=== PATIENT | female | born 1950 | race Caucasian/White ===

== ENCOUNTER 2017-01-16 14:34 | Inpatient (IN) | payer MEDICARE, OTHER ==
--- NOTE | ~2017-01-16 | CN ---
Consultation Report [facility] [address] [place]. [address] NAME: LULU SZYMANSKI : 48 STATUS : ADM IN [facility]#: [id number] AGE: 66 ADM/REG DATE : 01/16/17 MR#: [id number] REPORT SERV DATE: 01/17/17 DICTATED BY: STANLEY MCCARTY DATE: 01/16/17 REPORT STATUS : Draft TRANSCRIBED BY: MODSalvador DATE: 01/16/17 CONSULTATION DATE OF CONSULTATION: 01/16/2017 REASON: Abnormal cardiac enzymes. HISTORY OF PRESENT ILLNESS: Ms. Szymanski is a 66-year-old woman admitted with signs and symptoms of urosepsis. She has a known history of stage IV renal insufficiency and has been followed by Dr. Toro. In this setting, cardiac enzymes were drawn and troponin value was 0.18. The patient denied any chest pain or chest discomfort. The patient does have a known history of coronary artery disease, status post CAB by Dr. Massimo Abbott in 2009. She did see a cardiac surgeon at the diagnostic center at that time, but cannot remember the name and since then, has not had followup with Cardiology. She denies having any repeat angiograms or stent placement since that time. PAST MEDICAL HISTORY: COPD, obstructive sleep apnea, morbid obesity, diabetes, hypertension, stage IV kidney disease with proteinuria, history of CAB in 2009, reportedly normal LV systolic function. HOME MEDICATIONS: Include albuterol, aspirin, carvedilol, Plavix, Aricept, Neurontin, insulin, levothyroxine, Pravachol, Januvia, spironolactone, and Demadex. FAMILY HISTORY: Noncontributory. Negative premature coronary artery disease. SOCIAL HISTORY: Negative tobacco or alcohol. REVIEW OF SYSTEMS: As noted above. All other systems reviewed and negative. PHYSICAL EXAMINATION: VITAL SIGNS: Blood pressure of 107/54, pulse 100, in atrial fibrillation, respirations 18, O2 sat 92%. GENERAL: Well developed, well nourished. HEENT: No icterus. Good dentition. NECK: Supple. No masses or thyromegaly LUNGS: Breathing comfortably. No rales or wheezes. COR: Normal S1, S2. No S3 or S4. No murmurs, clicks, rubs. No JVD. She has an irregularly irregular rhythm. ABD: Soft, nondistended, nontender, no hepatosplenomegaly. EXT: No clubbing, cyanosis or edema. Peripheral pulses 2+/=bilaterally. SKIN: Warm and dry. No visible lesions. MS: Chest wall without deformity, no obvious clavicular fractures. Consultation Report [facility] [id number] [place]. [address] NAME: LULU SZYMANSKI : [birth year] STATUS : ADM IN [facility]#: [id number] AGE: 66 ADM/REG DATE : 01/16/17 MR#: [id number] REPORT SERV DATE: 01/17/17 DICTATED BY: STANLEY MCCARTY DATE: 01/16/17 REPORT STATUS : Draft TRANSCRIBED BY: JOSE ALFREDO DATE: 01/16/17 NEURO/PSYCH: Oriented X3. No anxiety or depression. IMAGING PROCEDURE: EKG shows atrial fibrillation, late transition of the QRS. QRS duration and QT interval are within normal limits. No evidence for ischemia or infarction. IMPRESSION AND PLAN: The patient admitted with what appears to be urosepsis with profoundly elevated white blood cell count, stage IV renal insufficiency which is chronic, hyperglycemic. In this setting, her troponin was 0.18. EKG does not reflect acute ischemia or infarction. She is denying any chest pain or chest discomfort. She does have a known history of coronary artery disease and status post CAB, but appears to have been stable from cardiovascular standpoint since that time. I would recommend repeating troponin values. In the setting of her urosepsis and renal insufficiency, the current low elevation is unlikely to be related to myocardial ischemia or infarction. She does have atrial fibrillation. It is not clear whether this is an old or new finding. I do not have any old EKGs. She does not seem to be symptomatic with the atrial fibrillation. I would recommend giving her intravenous heparin for CVA prophylaxis. Consider long-term anticoagulation, possibly with Coumadin given her stage IV kidney disease. I would probably employ a rate control strategy for her. Long-standing history of coronary artery disease. Continue current cardiac medications including Pravachol. Check echocardiogram. RAMAKRISHNA/JOSE ALFREDO Stanley Mccarty M.D. / [id number] CC: Filemon Dagn M.D.
--- NOTE | ~2017-01-16 | CN ---
Consultation Report [facility] [address] [place]. [address] NAME: LULU SZYMANSKI : 48 STATUS : ADM IN PAT#: [id number] AGE: 66 ADM/REG DATE : 01/16/17 MR#: [id number] REPORT SERV DATE: 01/16/17 DICTATED BY: SORIN MELARA DATE: 01/16/17 REPORT STATUS : Draft TRANSCRIBED BY: MODL DATE: 01/16/17 NEPHROLOGY CONSULT DATE OF CONSULTATION: 01/16/2017 REASON FOR CONSULT: Chronic kidney disease with acute kidney injury. HISTORY OF PRESENT ILLNESS: Ms. Szymanski is a pleasant 66-year-old white female who has advanced chronic kidney disease, stage IV, followed in the office of [facility] by Dr. Toro. She has had a left upper arm AV fistula in place for several years but has never been on dialysis. She was most recently seen in the office on 01/08/2017, at which time, her creatinine was 2.3 and urine protein-creatinine ratio was 0.218. Her baseline creatinine for several years has been 1.8 to 2.3. She came into the emergency room earlier today with a urinary tract infection. Chest x-ray showed no active infiltrates and CT without contrast showed no intraabdominal pathology. White count 24,700. BUN 81, creatinine 4.5, potassium 4.2. Urinalysis was consistent with urinary tract infection. She has been started on IV fluids and antibiotics. PAST MEDICAL HISTORY: 1. CKD stage 4, baseline creatinine of 1.8 to 2.3 since 06/2010, left upper arm AV fistula in place but never on dialysis. 2. Microalbuminuria 218 mg earlier this month. 3. IDDM with neuropathy. 4. Coronary artery disease with CABG in 2009, EF 45%, previous mitral valve repair. Recent abnormal stress test with mild anterior, anteroseptal and apical ischemia without plans for catheterization at this time because of chronic kidney disease. 5. History of severe diastolic dysfunction. 6. Sleep apnea. 7. Pulmonary hypertension. 8. Obesity. 9. Hyperlipidemia. 10.Hypothyroidism. 11.Peripheral vascular disease with a history of lower extremity stents. MEDICATIONS: On presentation, albuterol inhaler, Xanax, aspirin, Coreg 6.25 mg b.i.d., Celexa 40 mg daily, Plavix 75 mg daily, Aricept 10 mg h.s., iron supplement twice a day, Neurontin, Toujeo 70 units b.i.d., Imdur 120 mg daily, Synthroid 75 mcg daily, fish oil 1000 mg daily, Protonix, Pravachol 40 mg h.s., Januvia 100 mg daily, Aldactone 25 mg daily, Demadex 100 mg daily, and tiotropium inhaler two puffs a day. FAMILY HISTORY: Noncontributory to current admission. REVIEW OF SYSTEMS: Significant for poor appetite for the last several days. Easy bruising and urinary tract Consultation Report [facility] [address] [place]. [address] NAME: LULU SZYMANSKI : 48 STATUS : ADM IN [facility]#: [id number] AGE: 66 ADM/REG DATE : 01/16/17 MR#: [id number] REPORT SERV DATE: 01/16/17 DICTATED BY: SORIN MELARA DATE: 01/16/17 REPORT STATUS : Draft TRANSCRIBED BY: JOSE ALFREDO DATE: 01/16/17 infection symptoms. SOCIAL HISTORY: Not obtained at this time as the patient is being transported to the bathroom by ER staff. PHYSICAL EXAMINATION: VITAL SIGNS: Temperature 98.2, pulse 103, respirations 14, blood pressure 107/53, and 92% sat on room air. GENERAL: She is a chronically ill-appearing, elderly, white female, who is awake, alert, oriented, and cooperative with the exam. She appears to be in no distress at this time. Sclerae without icterus. Conjunctivae not injected. Oropharynx is clear. Mucous membranes are dry. No JVD. LUNGS: She has bilateral rhonchi without dyspnea. HEART: Rate is tachycardic rhythm, is a regular 2/6 murmur. ABDOMEN: Obese, soft, nontender, nondistended. Bowel sounds present throughout without rebound or guarding. EXTREMITIES: Show trace edema. SKIN: Shows diffuse bruising without rash. NEURO: Grossly nonfocal. : Deferred. There is no Arguello catheter in place. Mood and affect are appropriate. Left upper arm AV fistula has palpable thrill, audible bruit that appears immature. LABS: Sodium 129, potassium 4.2, bicarb 25, BUN 81, creatinine 4.5, glucose 346, calcium 9.3, magnesium 2.1. Albumin 2.8. Troponin 0.18. White count 24,700, hemoglobin 12.2, and platelets 130,000. INR 1.3. ASSESSMENT AND PLAN: Ms. Szymanski has stage 4 chronic kidney disease with baseline creatinine of 1.8 to 2.3, now presents with acute kidney injury, azotemia, hyponatremia, leukocytosis, urinary tract infection, coronary disease with previous bypass surgery, recent positive stress test, hypotension, hypoalbuminemia, and paroxysmal atrial fibrillation. I suspect she does have a component of intravascular volume depletion related to her recent poor oral intake and use of diuretics. She has severe diastolic dysfunction and likely has cardiorenal syndrome, but at this point, may be somewhat dehydrated. Hold torsemide and Aldactone. Hydrate with a close watch of her volume status with her previous cardiac history. Defer antibiotics to the primary service. Protect left arm. Watch labs. Provide supportive care. She is very high risk for developing worsening renal function and/or dialysis dependence with cardiac catheterization. Group will follow closely with you and will work in concert with the Cardiology Service to decide optimal time for cardiac cath if needed during this admission. MADELAINE/SHANIQUAL Consultation Report [facility] [address] [place]. [address] NAME: LULU SZYMANSKI : 48 STATUS : ADM IN [facility]#: [id number] AGE: 66 ADM/REG DATE : 01/16/17 MR#: [id number] REPORT SERV DATE: 01/16/17 DICTATED BY: SORIN MELARA DATE: 01/16/17 REPORT STATUS : Draft TRANSCRIBED BY: MODSalvador DATE: 01/16/17 Sorin Melara M.D. / [id number] CC: Filemon Dang M.D. Mandeep Grewal, M.D.
--- NOTE | ~2017-01-16 | IDS ---
Interim Discharge Summary [facility] [address] [place]. [address] NAME: LULU CISSE : 48 STATUS : ADM IN [facility]#: [id number] AGE: 66 ADM/REG DATE : 01/16/17 MR#: [id number] REPORT SERV DATE: 01/21/17 DICTATED BY: MARIUSZ EVANS DATE: 01/21/17 REPORT STATUS : Draft TRANSCRIBED BY: MODL DATE: 01/21/17 ADMISSION DATE: 01/16/2017 DISCHARGE DATE: CONSULTANTS: Dr. Jeffry Frye and Dr. Ga Caro of Nephrology; Dr. Catalino Koenig, Cardiology. PROBLEM LIST: 1. Escherichia coli sepsis bacteremia due to urinary tract infection. 2. Acute kidney injury superimposed on stage 4 chronic kidney disease. 3. Exacerbation of peripheral neuropathy in feet. 4. Diabetes mellitus type 2 with A1c 7.6%. 5. New atrial fibrillation. 6. Pulmonary hypertension. 7. Coronary artery disease with previous bypass and mitral valve repair in 2009, current ejection fraction of 45% to 50%. 8. Obesity with body mass index of 40.8. 9. Hypertension, not well controlled. 10.Obstructive sleep apnea, on bedtime CPAP. 11.Thrombocytopenia, mild and transient, now improved. HISTORY: This patient went to the ER 01/16/2017 with dysuria, severe weakness, reduced urine production. Her creatinine was significantly above her baseline at 4.51. Her baseline is closer to 2. Her white count was elevated at 24.7. Her urinalysis was very abnormal with greater than 182 white cells, greater than 182 red blood cells, occasional white cell clumps. There were 31 squamous epithelium. There were a few bacteria. There is a large amount of leukocyte esterase. Chest x-ray in the emergency room showed moderate cardiomegaly that was stable and clear lung sutton. CT scan of abdomen and pelvis revealed no significant abnormalities. The patient was suspected to have sepsis. The ER gave her Rocephin and some IV fluids and she was referred to our team for inpatient care. Our admitting partner gave her some IV fluids and started her on Zosyn intravenously. Blood culture and urine culture grew out E. coli (one of two blood cultures). We switched this over to Azactam until the sensitivities came back and switched it then to Ancef. The procalcitonin was 23.44 on admission. Her white count has now normalized. The patient was seen by Nephrology with Dr. Frye and Dr. Caro and she was given some IV fluids. Currently, her renal function has improved back to a creatinine of 1.97 which is really at her baseline. The patient here was noted to have new atrial fibrillation. She was seen by Dr. Catalino Koenig of Cardiology. She had abnormal troponins up to 0.19 and it came back down. Dr. Koenig felt this was probably demand ischemia. He did order a new echocardiogram done on 01/17/2017; left atrial size 5.5 cm, left ventricular ejection fraction of 45% to 50%. Interim Discharge Summary [address] [address] NAME: LULU CISSE : 48 STATUS : ADM IN PAT#: [id number] AGE: 66 ADM/REG DATE : 01/16/17 MR#: [id number] REPORT SERV DATE: 01/21/17 DICTATED BY: MARIUSZ EVANS DATE: 01/21/17 REPORT STATUS : Draft TRANSCRIBED BY: JOSE ALFREDO DATE: 01/21/17 Moderate pulmonary hypertension with a PA pressure of 49. Stable mitral valve repair. Mild tricuspid regurgitation. Small posterior loculated pericardial effusion. Dr. Koenig recommended rate control and anticoagulation. She has rate control achieved on Coreg at this time and she has been on a heparin drip and converted into Coumadin because of her renal dysfunction. Her INR is currently up to 1.7, but she is still on heparin drip. The patient was evaluated by Physical Therapy, and they felt she would be able to go home with family and continue her baseline, but her peripheral neuropathy in her feet has gotten much worse so that she cannot stand or bear weight on it. So, we are asking Physical Therapy to reassess, and we are increasing her gabapentin dose to see if it will help with this neuropathy flare up. She has chronic obstructive sleep apnea. Her CPAP machine the mask, it does not stay attached to the tubing. Case Management reportedly has talked to her the medical supplier and they are going to provide her with a new tubing mask, so that it will work, but in the meantime, she is using the hospital CPAP unit. She did have thrombocytopenia during her sepsis bacteremia, but it has resolved now. The patient's blood pressure has been higher, so we are going to add some Norvasc to try to help with blood pressure control. Rehab versus home will depend on her foot neuropathy. We will allow her to ambulate at her baseline. When she is well enough to be out of the hospital, she should be able to switch to oral antibiotics. SUSANNAH/JOSE ALFREDO Mariusz Evans M.D. / [id number] CC: Filemon Dang M.D.
--- NOTE | ~2017-01-16 | DS ---
Discharge Summary [facility] [address] [place]. [address] NAME: LULU CISSE : 48 STATUS : DIS IN PAT#: [id number] AGE: 66 ADM/REG DATE : 01/16/17 MR#: [id number] REPORT SERV DATE: 01/27/17 DICTATED BY: ASHUTOSH JOYA DATE: 01/26/17 REPORT STATUS : Draft TRANSCRIBED BY: MODL DATE: 01/26/17 ADMISSION DATE: 01/16/2017 DISCHARGE DATE: 01/26/2017 REASON FOR ADMISSION: This is a 66-year-old female who was admitted with weakness, mild confusion, and increased urinary frequency for about 2 to 3 days prior to admission. In the emergency room, she was found to have UTI and she was admitted. DISCHARGE DIAGNOSES: 1. Urinary tract infection, positive for Escherichia coli with Escherichia coli bacteremia. 2. Acute kidney injury, on chronic kidney disease 4. 3. Diabetes type 2. 4. Atrial fibrillation. 5. Hypertension. 6. Neuropathy. 7. Coronary artery disease. 8. Obstructive sleep apnea, on CPAP at night. HOSPITAL COURSE: Please see admission H and P from Nimisha Oliveros on 01/16/2017 and interim discharge summary from Pritesh Evans on 01/21/2017 for full details on admission and hospital stay. I picked up the patient on 01/24/2017. 1. The patient had been admitted for UTI. Urine culture would grow out E. coli and blood cultures would also grow out E. coli. The E. coli was sensitive to fluoroquinolones. Initially, she was placed on IV Zosyn, then changed to IV Azactam, then changed to IV Ancef, and she will complete her 14 days of antibiotic coverage with oral Cipro. She has received 7 days of antibiotics to this point. She needs 7 more days to complete. 2. Acute kidney injury, on CKD 4. The patient's creatinine during hospital stay on admission was 4.38 on admission with IV fluid hydration, it trended down to 2.16 on 01/24/2017. 3. Atrial fibrillation. The patient on Coumadin at home. INR at discharge is 2.7. DISCHARGE CONDITION: Stable. DISCHARGE MEDICATIONS: 1. Cipro 500 mg p.o. b.i.d. x7 more days. 2. Torsemide 100 mg p.o. daily. 3. Protonix 40 mg p.o. daily. 4. Synthroid 75 mcg p.o. daily. 5. Coreg 6.25 mg p.o. b.i.d. 6. Neurontin 900 mg p.o. at bedtime. 7. Ferrous sulfate 325 mg p.o. b.i.d. 8. Stiolto Respimat 2.5 mcg inhaled daily. 9. Albuterol q.4 hours p.r.n. 10.Norvasc 5 mg p.o. daily. 11.Aspirin 81 mg p.o. daily. Discharge Summary [facility] [id number] [place]. [address] NAME: LULU CISSE : 48 STATUS : DIS IN PAT#: [id number] AGE: 66 ADM/REG DATE : 01/16/17 MR#: [id number] REPORT SERV DATE: 01/27/17 DICTATED BY: ASHUTOSH JOYA DATE: 01/26/17 REPORT STATUS : Draft TRANSCRIBED BY: JOSE ALFREDO DATE: 01/26/17 12.Folic acid 1 mg p.o. daily. 13.Neurontin 600 mg p.o. daily. 14.NovoLog sliding scale. 15.Imdur 120 mg p.o. daily. 16.Multivitamin one tablet p.o. daily. 17.DuoNeb q.4 hours p.r.n. 18.Levemir 30 units at bedtime. 19.NovoLog 5 units a.c. t.i.d. 20.Warfarin 4 mg p.o. daily. DISCHARGE PLAN: The patient had some issues with her neuropathy and bilateral foot pain, but that had resolved by the end of hospital stay; however, she was still too weak to get out of the bed and PT recommended rehab. She has been arranged for [facility] and is discharging there today. The patient to follow up with her primary care at conclusion of rehab. DICTATED BY: EMIR Arias/JOSE ALFREDO Ashutosh Joya APN / [id number] CC: Sven Cox M.D. Filemon Negro M.D. Nathan Chamberlain, M.D.
--- NOTE | ~2017-01-16 | HP ---
History And Physical [facility] [address] [place]. [address] NAME: LULU CISSE : 48 STATUS : ADM IN [facility]#: [id number] AGE: 66 ADM/REG DATE : 01/16/17 MR#: [id number] REPORT SERV DATE: 01/16/17 DICTATED BY: NIMISHA NUNEZ DATE: 01/16/17 REPORT STATUS : Draft TRANSCRIBED BY: MODL DATE: 01/16/17 DATE OF ADMISSION: 01/16/2017 CHIEF COMPLAINT: Weakness, mild confusion, increased urinary frequency and urgency for about two to three days. HISTORY OF PRESENT ILLNESS: This is a very pleasant 66 years old female. She has a history of chronic kidney disease stage 3 to 4, her baseline creatinine is around 1.8 to 2.3, she is followed by Dr. Toro, she has a history of left upper extremity AV fistula complicated by steal syndrome covered by two grafts by Dr. Lopez, she is not currently on dialysis; coronary artery disease, status post CABG in 2010; history of diabetes type 2, insulin dependent; hypertension; hyperlipidemia; obesity; obstructive sleep apnea; peripheral neuropathy; and mild cognitive impairment. She is a patient of Dr. Funk, her primary care provider. Dr. Mandel is her associate faculty. Presenting today to [facility] with complaints of not feeling well. It is very important to note that the patient has been having prior urinary tract infection for a couple of days. She is complaining of increased urinary frequency and urgency, significant decrease of urine output, as well as weakness, a little bit more confused than usual, and her sugar that has been uncontrolled. She did not have any chest pain. She does have some shortness of breath, but she has also a history of COPD. She is on oxygen at night. She felt very sick overall, but she did not have any nausea or vomiting. No diarrhea or constipation. She had decrease in her p.o. intake and her drinking with the above symptoms. She has been presenting to [facility] emergency room. She has been evaluated and after speaking with Dr. Caro from Nephrology Service, the patient has been admitted to Hospitalist Service for further evaluation and treatment. PAST MEDICAL HISTORY: Significant for coronary artery disease with prior CABG; chronic kidney disease stage 4; history of left upper extremity fistula; peripheral vascular disease; COPD; obstructive sleep apnea; hyperlipidemia; hypertension; hypothyroidism; diabetes type 2, insulin dependent. PAST SURGICAL HISTORY: Includes CABG in 2011, cholecystectomy, lysis of adhesions after small bowel obstruction which required surgery, fistula to the left upper extremity, and hysterectomy. SOCIAL HISTORY: The patient is a . She quit smoking more than 20 years ago. No alcohol. No IV drugs. She lives alone. ALLERGIES: SHE IS ALLERGIC TO CODEINE, DILAUDID, AND ATIVAN. MEDICATIONS AT HOME: Include iron sulfate, Neurontin, insulin glargine, Imdur, Synthroid, omega-3 fatty acids, Protonix, Pravachol, Januvia, spironolactone, tiotropium bromide and olodaterol infusion, and Demadex. REVIEW OF SYSTEMS: A 14-point review of systems has been obtained and pertinent positive has been listed into History And Physical [address] [address] NAME: LULU CISSE : 48 STATUS : ADM IN [facility]#: [id number] AGE: 66 ADM/REG DATE : 01/16/17 MR#: [id number] REPORT SERV DATE: 01/16/17 DICTATED BY: NIMISHA NUNEZ DATE: 01/16/17 REPORT STATUS : Draft TRANSCRIBED BY: JOSE ALFREDO DATE: 01/16/17 the history of present illness, otherwise negative except those underlying above. OBJECTIVE: VITAL SIGNS: The patient currently is afebrile, blood pressure 107/53, heart rate 103, respiratory rate 14, saturating 92% on arrival on room air. GENERAL: She is a very pleased, well-developed, well-nourished female, in no acute distress. She is alert and oriented x3. She is nonfocal. She follows her commands appropriately. HEENT: Shows pupils equal, round, and reactive to light. Extraocular movements intact. NECK: No JVD. No lymphadenopathy. No thyromegaly appreciated. CHEST: Eval shows bilateral air entry. Clear anteroposterior. Decreased breath sounds bibasilarly. No wheezes, crackles, or rhonchi appreciated. CARDIOVASCULAR: Irregularly irregular. S1, S2 positive. No S3, no S4. No murmurs, rubs, or gallops appreciated. ABDOMEN: Soft with positive bowel sounds. Nontender. No guarding. No rebound. EXTREMITIES: No clubbing, cyanosis, or edema. NEUROLOGIC: She is generalized weak, but she is alert and oriented x3. Mildly anxious mood. Follows commands appropriately. LABORATORY DATA: Labs from today include sodium 129, potassium 4.2, chloride 94, CO2 of 25, BUN 81, creatinine is 451, glucose is 346. Her troponin I is 0.18, her lactate is 2.1, white count 24.7, hemoglobin 12.2, hematocrit 35.6, platelets 130. INR is 1.3. Her UA has been positive for large leukocyte esterase, white cells, and few bacteria. Her blood cultures currently are pending and her urine cultures are pending as well. There is EKG, which shows atrial fibrillation with heart rate [address] elevation. Chest x-ray, portable, performed in the emergency room has shown cardiomegaly. No acute cardiopulmonary abnormalities. Lungs are clear. The CT of the abdomen and pelvis without contrast showed no acute intraabdominal or pelvic pathology that could be identified. ASSESSMENT: This is a very pleasant 66 years old female with: 1. Urinary tract infection and sepsis. 2. Bbjvu-jr-nmslmbl progressive kidney disease stage 4, followed by Dr. Toro. 3. History of left upper extremity IV fistula. 4. Hypertension. 5. Diabetes type 2, uncontrolled, insulin dependent. 6. Hyperlipidemia. 7. Obstructive sleep apnea. 8. Coronary artery disease with prior CABG. 9. New-onset atrial fibrillation. 10.Positive troponin I. 11.Hyperlipidemia. 12.Mild cognitive impairment. PLAN: The patient is going to be admitted to Hospitalist Service. 1. UTI with sepsis. We will check urine culture and blood culture. I am going to place her on Zosyn. We are going to place a Arguello catheter. We are going to give her fluids. We will hold her Aldactone and torsemide for today and just hydrate her. Strict I's and O's, strict daily weights, and consult Nephrology for further recommendation. History And Physical [address] [place]. [address] NAME: LULU CISSE : 48 STATUS : ADM IN [facility]#: [id number] AGE: 66 ADM/REG DATE : 01/16/17 MR#: [id number] REPORT SERV DATE: 06/13/17 DICTATED BY: NIMISHA NUNEZ DATE: 01/16/17 REPORT STATUS : Draft TRANSCRIBED BY: JOSE ALFREDO DATE: 01/16/17 2. Atrial fibrillation, new onset. We are going to actually place her on heparin drip. Continue beta-nallely. Cardizem p.r.n. We are going to continue her beta-nallely, aspirin, and Plavix. Rule her out for [place] by serial cardiac enzymes, serial EKG, and consult Dr. Mandel. 3. Diabetes. We will check hemoglobin A1c. We are going to place her on Lantus twice a day. We are going to hold her Januvia and place her on sliding scale. 4. Obstructive sleep apnea. Place her on oxygen, on CPAP. 5. Hypertension. We will continue her home medications. 6. We are going to provide reasonable pain and nausea control. GI and DVT prophylaxis. Further workup and recommendation pending above. CF/JOSE ALFREDO Nimisha Nunez M.D. / [id number] CC: Filemon Dang M.D.
[2017-01-16 13:47] LABS: ASCORBIC ACID (UR NOT ORDER) NEG (NEG); BILIRUBIN, URINE NEGATIVE (NEG); ER URINALYSIS TAT 0 Hrs 21 Mins; KETONE, URINE NEGATIVE (NEG); LEUKOCYTE ESTERASE(NOT OR LARGE (NEG); NITRITE (URINE) NEG (NEG)
[2017-01-16 13:48] LABS: WBC (NOT ORDERED) (RFLEX) > 182 (0-5)
[2017-01-16 14:28] LABS: BASOPHILS 0.1 %; BASOPHILS ABSOLUTE 0.02 10/3/uL (0.0-0.16); EOSINOPHILS 0.1 %; EOSINOPHILS ABSOLUTE 0.02 10/3/uL (0.0-0.53); ER CBC TAT 0 Hrs 08 Mins; HEMATOCRIT 35.6 % (36.0-48.0); HEMOGLOBIN 12.2 g/dL (12.0-16.0); IMMATURE GRANULOCYTES 0.7 %; IMMATURE GRANULOCYTES ABSOLUTE 0.17 10/3/uL (0.0-0.11); LYMPHOCYTES 5.1 %; LYMPHOCYTES ABSOLUTE 1.26 10/3/uL (0.67-4.30); MANUAL DIFF NO %; MEAN CORPUS HGB CONC 34.3 g/dL (32.0-36.0); MEAN CORPUSCULAR VOLUME 87.7 fL (80-100); MEAN PLATELET VOLUME 9.4 fL (9.2-13.0); MONOCYTES 4.6 %; MONOCYTES ABSOLUTE 1.14 10/3/uL (0.21-1.20); NEUTROPHILS 89.4 %; PLATELET COUNT 130 10/3/uL (150-400); RBC DISTRIBUTION WIDTH 14.6 % (12.0-16.0); RED CELL COUNT 4.06 10/6/uL (4.0-5.6); WHITE BLOOD CELLS 24.7 10/3/uL (4.5-10.5)
[2017-01-16 14:34] LABS: INTERNATIONAL NORMAL RATI 1.3 UNITS (-); PROTIME (NOT ORD) 15.6 SEC (12.0-14.5)
[~2017-01-16 14:34] MED LIST: ACTOS45 PO; ALBUTEROL; AMARYL1 MG PO; AMB10 PO; APRES10B PO; ARICEPT5 PO; ASA5GR PO; ASAB PO; ASABAYER PO; ATROVENTUD INH; ATV.5 PO; BUFFERIN PO; BYSTOLIC5 MG PO; CALTRA600D PO; CELEXA10 PO; CELEXA20 PO; CINNAMONPO PO; COREG6 PO; DEMA100 PO; DEMA20 PO; DUONEB INH; EFFIENT10 PO; FERROUS SULFATE PO; HCTZ25B PO; HEMOCYTET PO; IMDUR30 PO; INSULIN; IRON 325 MG PO; IRON325 MG PO; ISOSORB DIN30 MG PO; JANUVIA100 MG PO; JANUVIA50 PO; K-TABS10 MEQ PO; KAPIDEX60 MG PO; KLOR-CON 1010 MEQ PO; L20 PO; L40 PO; LANTUS SC; LEVAQUIN750 MG PO; LEVEMIR SC; LOP25 PO; MELATONIN5 M1 PO; MIRALAXPKT PO; NEUR300 PO; NEUR600 PO; NOVOLOG SC; NTGOINTUD TOP; PLAVIX PO; PR25 PO; PRAVACHOL40 MG PO; PRAVACHOL80 MG PO; PROTONIX PO; SEROQUEL25 PO; SPIRO25 PO; STEROID IJ; SYMBICORT 160/41 INH INH; SYN.025B PO; SYN.05 PO; SYN075 PO; TOUJEO SC; ULTRAM50 M1 PO; VITAMIN D PO; VITAMIN D1000 UNI1 PO; XANAX1 MG PO; ZESTRIL10 MG PO; [UNRECOGNIZED DRUG - OTHER] TOP
[2017-01-16 14:35] LABS: PARTIAL THROMBO TIME 28.4 SEC (22.5-37.2)
[2017-01-16 14:44] LABS: BAND NEUTROPHILS 2 %; ER DIFF TAT 0 Hrs 24 Mins; LYMPHOCYTES 5 %; LYMPHOCYTES ABSOLUTE (CALC) 1.24 10/3/uL (0.67-4.30); MONOCYTES 4 %; MONOCYTES ABSOLUTE (CALC) 0.99 10/3/uL (0.21-1.20); NEUTROPHILS ABSOLUTE (CALC) 22.48 10/3/uL (2.02-8.40); PLATELET ESTIMATE SLT DEC (ADEQUATE); RBC MORPHOLOGY NORM (NORMAL); SEGMENTED NEUTROPHIL (0) 89 %; TOTAL NUCLEATED CELLS 100
[2017-01-16 14:46] LABS: A/G RATIO 0.7 (0.7-1.9); ALBUMIN 2.8 G/DL (3.5-5.0); CALCIUM, SERUM 9.3 MG/DL (8.5-10.4); CHLORIDE, SERUM 94 MMOL/L (96-112); POTASSIUM, SERUM 4.2 MMOL/L (3.5-5.3); SGOT(AST) 23 U/L (5-40); SGPT(ALT) 16 U/L (5-65); TOTAL BILIRUBIN 0.6 MG/DL (0-1.2); TOTAL PROTEIN 6.8 G/DL (6.0-8.5)
[2017-01-16 14:47] LABS: ALKALINE PHOSPHATASE 94 U/L (45-117); BUN (BLOOD UREA NITROGEN) 81 MG/DL (6-23); CHEST PAIN PROFILE TAT 0 Hrs 24 Mins; CO2 (CARBON DIOXIDE) 25 MMOL/L (24-34); CREATININE 4.51 MG/DL (0.55-1.02); GFR AFRICAN AMERICAN 11 ML/MIN (>=60); GFR NON AFRICAN AMERICAN 9 ML/MIN (>=60); GLUCOSE, SERUM 346 MG/DL (60-99); SODIUM, SERUM 129 MMOL/L (135-148); TROPONIN I 0.18 NG/ML (<0.05)
[2017-01-16 14:59] LABS: BE (BASE EXCESS) -0.4 MEQ/L (0 +/- 2.5); CARBOXYHEMOGLOBIN 1.8 % (0-3); HCO3 (ACTUAL BICARBONATE) 23.6 MEQ/L (23-27); HEMOBLOGIN CONTENT 12.6 G/DL (12-16); INSTRUMENT SERIAL # 8087; METHEMOGLOBIN 0.2 % (0-3); O2 CONTENT 15.6 VOL% (18-24); OPERATOR ID 35091; PCO2 (CO2 TENSION) 36 MMHG (35-45); PO2 (O2 TENSION) 56 MMHG (79-93); SAMPLE Arterial; pH 7.43 (7.37-7.43)
[2017-01-16 15:00] LABS: ALLENS TEST Pos
[2017-01-16] MEDS ORDERED: X5 PO (16:24)
[2017-01-16] MEDS ORDERED: ARICEPT10 PO (16:25)
[2017-01-16] MEDS ORDERED: DEMA100 PO (16:25)
[2017-01-16] MEDS ORDERED: PROTONIX PO (16:25)
[2017-01-16] MEDS ORDERED: SPIRO25 PO (16:26)
[2017-01-16] MEDS ORDERED: PLAVIX PO (16:26)
[2017-01-16] MEDS ORDERED: JANUVIA100 MG PO (16:26)
[2017-01-16] MEDS ORDERED: SYN075 PO (16:26)
[2017-01-16] MEDS ORDERED: PRAVACHOL40 MG PO (16:27)
[2017-01-16] MEDS ORDERED: COREG6 PO (16:27)
[2017-01-16] MEDS ORDERED: IMDUR120 PO (16:27)
[2017-01-16] MEDS ORDERED: CELEXA40 MG PO (16:27)
[2017-01-16] MEDS ORDERED: NEUR300 PO ×2 (16:27)
[2017-01-16] MEDS ORDERED: FERROUS SULF325 M1 PO (16:28)
[2017-01-16] MEDS ORDERED: ASABAYER PO (16:28)
[2017-01-16] MEDS ORDERED: STIOLTO RESPIMAT4 GM INH (16:28)
[2017-01-16] MEDS ORDERED: TOUJEO SC (16:28)
[2017-01-16] MEDS ORDERED: FISH-EPA1000 MG PO (16:28)
[2017-01-16] MEDS ORDERED: VENTOLIN HFA INH (16:29)
[2017-01-16 21:27] LABS: GLYCOHEMOGLOBIN (HbA1c) 7.6 % (4.7-6.1)
[2017-01-16 21:28] LABS: FERRITIN 133 NG/ML (8-252); FREE T4 1.29 NG/DL (0.76-1.46); IRON BINDING CAPACITY 244 MCG/DL (225-410); IRON, SERUM 12 MCG/DL (35-150)
[2017-01-16 21:30] LABS: CK-MB 2.9 NG/ML; CPK 302 U/L (0-200)
[2017-01-16 22:08] LABS: PROCALCITONIN 23.44 ng/mL (<0.5)
[2017-01-17 05:56] LABS: BASOPHILS 0.1 %; BASOPHILS ABSOLUTE 0.02 10/3/uL (0.0-0.16); EOSINOPHILS 0.3 %; EOSINOPHILS ABSOLUTE 0.06 10/3/uL (0.0-0.53); HEMATOCRIT 34.2 % (36.0-48.0); HEMOGLOBIN 11.7 g/dL (12.0-16.0); IMMATURE GRANULOCYTES 0.7 %; IMMATURE GRANULOCYTES ABSOLUTE 0.14 10/3/uL (0.0-0.11); LYMPHOCYTES 6.9 %; LYMPHOCYTES ABSOLUTE 1.38 10/3/uL (0.67-4.30); MANUAL DIFF NO %; MEAN CORPUS HGB CONC 34.2 g/dL (32.0-36.0); MEAN CORPUSCULAR HEMOGLOB 30.2 pg (26.0-34.0); MEAN CORPUSCULAR VOLUME 88.4 fL (80-100); MEAN PLATELET VOLUME 9.3 fL (9.2-13.0); PLATELET COUNT 122 10/3/uL (150-400); RBC DISTRIBUTION WIDTH 14.7 % (12.0-16.0); RED CELL COUNT 3.87 10/6/uL (4.0-5.6); WHITE BLOOD CELLS 20.1 10/3/uL (4.5-10.5)
[2017-01-17 06:15] LABS: A/G RATIO 0.7 (0.7-1.9); ALBUMIN 2.5 G/DL (3.5-5.0); CALCIUM, SERUM 8.7 MG/DL (8.5-10.4); CHLORIDE, SERUM 100 MMOL/L (96-112); CO2 (CARBON DIOXIDE) 23 MMOL/L (24-34); CREATININE 4.38 MG/DL (0.55-1.02); GFR AFRICAN AMERICAN 11 ML/MIN (>=60); GFR NON AFRICAN AMERICAN 10 ML/MIN (>=60); GLOBULIN 3.7 G/DL (2.5-4.1); POTASSIUM, SERUM 3.5 MMOL/L (3.5-5.3); SGOT(AST) 28 U/L (5-40); SGPT(ALT) 16 U/L (5-65); SODIUM, SERUM 133 MMOL/L (135-148); TOTAL BILIRUBIN 0.5 MG/DL (0-1.2); TOTAL PROTEIN 6.2 G/DL (6.0-8.5)
[2017-01-17 06:16] LABS: ALKALINE PHOSPHATASE 78 U/L (45-117); BUN (BLOOD UREA NITROGEN) 88 MG/DL (6-23); CK-MB 4.3 NG/ML; CPK 394 U/L (0-200); GLUCOSE, SERUM 148 MG/DL (60-99); TROPONIN I 0.18 NG/ML (<0.05)
[2017-01-17 20:02] LABS: INTERNATIONAL NORMAL RATI 1.1 UNITS (-); PARTIAL THROMBO TIME 34.6 SEC (22.5-37.2); PROTIME (NOT ORD) 14.5 SEC (12.0-14.5)
[2017-01-18 05:24] LABS: BASOPHILS 0.2 %; BASOPHILS ABSOLUTE 0.02 10/3/uL (0.0-0.16); EOSINOPHILS 1.1 %; EOSINOPHILS ABSOLUTE 0.13 10/3/uL (0.0-0.53); HEMATOCRIT 31.6 % (36.0-48.0); HEMOGLOBIN 10.6 g/dL (12.0-16.0); IMMATURE GRANULOCYTES 0.3 %; IMMATURE GRANULOCYTES ABSOLUTE 0.04 10/3/uL (0.0-0.11); MEAN CORPUS HGB CONC 33.5 g/dL (32.0-36.0); MEAN CORPUSCULAR HEMOGLOB 29.4 pg (26.0-34.0); MEAN CORPUSCULAR VOLUME 87.5 fL (80-100); MEAN PLATELET VOLUME 9.5 fL (9.2-13.0); MONOCYTES 7.2 %; MONOCYTES ABSOLUTE 0.87 10/3/uL (0.21-1.20); NEUTROPHILS 81.2 %; NEUTROPHILS ABSOLUTE 9.75 10/3/uL (2.02-8.40); PLATELET COUNT 128 10/3/uL (150-400); RBC DISTRIBUTION WIDTH 14.7 % (12.0-16.0); RED CELL COUNT 3.61 10/6/uL (4.0-5.6)
[2017-01-18 05:31] LABS: MANUAL DIFF NO %
[2017-01-18 05:37] LABS: ALBUMIN 2.3 G/DL (3.5-5.0); BUN (BLOOD UREA NITROGEN) 96 MG/DL (6-23); CALCIUM, SERUM 8.1 MG/DL (8.5-10.4); CHLORIDE, SERUM 101 MMOL/L (96-112); CO2 (CARBON DIOXIDE) 23 MMOL/L (24-34); CREATININE 3.61 MG/DL (0.55-1.02); GFR AFRICAN AMERICAN 14 ML/MIN (>=60); GFR NON AFRICAN AMERICAN 12 ML/MIN (>=60); GLUCOSE, SERUM 48 MG/DL (60-99); PHOSPHORUS, SERUM 5.2 MG/DL (2.5-4.5); POTASSIUM, SERUM 3.5 MMOL/L (3.5-5.3); SODIUM, SERUM 135 MMOL/L (135-148)
[2017-01-18 05:39] LABS: INTERNATIONAL NORMAL RATI 1.2 UNITS (-)
[2017-01-18 05:40] LABS: PARTIAL THROMBO TIME 75.6 SEC (22.5-37.2)
[2017-01-19 01:10] LABS: BASOPHILS 0.2 %; BASOPHILS ABSOLUTE 0.02 10/3/uL (0.0-0.16); EOSINOPHILS 1.7 %; EOSINOPHILS ABSOLUTE 0.18 10/3/uL (0.0-0.53); HEMATOCRIT 32.7 % (36.0-48.0); HEMOGLOBIN 10.8 g/dL (12.0-16.0); IMMATURE GRANULOCYTES 0.4 %; IMMATURE GRANULOCYTES ABSOLUTE 0.04 10/3/uL (0.0-0.11); LYMPHOCYTES 9.8 %; LYMPHOCYTES ABSOLUTE 1.03 10/3/uL (0.67-4.30); MEAN CORPUSCULAR HEMOGLOB 29.6 pg (26.0-34.0); MEAN CORPUSCULAR VOLUME 89.6 fL (80-100); MEAN PLATELET VOLUME 9.6 fL (9.2-13.0); MONOCYTES 9.8 %; MONOCYTES ABSOLUTE 1.04 10/3/uL (0.21-1.20); NEUTROPHILS 78.1 %; NEUTROPHILS ABSOLUTE 8.25 10/3/uL (2.02-8.40); PLATELET COUNT 131 10/3/uL (150-400); RBC DISTRIBUTION WIDTH 15.1 % (12.0-16.0); RED CELL COUNT 3.65 10/6/uL (4.0-5.6); WHITE BLOOD CELLS 10.6 10/3/uL (4.5-10.5)
[2017-01-19 01:16] LABS: MANUAL DIFF NO %
[2017-01-19 01:17] LABS: ALBUMIN 2.3 G/DL (3.5-5.0); CALCIUM, SERUM 8.5 MG/DL (8.5-10.4); CHLORIDE, SERUM 105 MMOL/L (96-112); CO2 (CARBON DIOXIDE) 26 MMOL/L (24-34); PHOSPHORUS, SERUM 5.4 MG/DL (2.5-4.5); SODIUM, SERUM 140 MMOL/L (135-148)
[2017-01-19 01:19] LABS: BUN (BLOOD UREA NITROGEN) 82 MG/DL (6-23); CREATININE 3.06 MG/DL (0.55-1.02); GFR AFRICAN AMERICAN 17 ML/MIN (>=60); GFR NON AFRICAN AMERICAN 15 ML/MIN (>=60); GLUCOSE, SERUM 97 MG/DL (60-99); POTASSIUM, SERUM 4.7 MMOL/L (3.5-5.3)
[2017-01-19 01:25] LABS: PARTIAL THROMBO TIME 109.8 SEC (22.5-37.2)
[2017-01-19 02:45] LABS: INTERNATIONAL NORMAL RATI 1.1 UNITS (-)
[2017-01-20 05:05] LABS: BASOPHILS 0.2 %; BASOPHILS ABSOLUTE 0.02 10/3/uL (0.0-0.16); EOSINOPHILS 1.9 %; EOSINOPHILS ABSOLUTE 0.19 10/3/uL (0.0-0.53); HEMATOCRIT 30.8 % (36.0-48.0); HEMOGLOBIN 10.1 g/dL (12.0-16.0); IMMATURE GRANULOCYTES 0.6 %; IMMATURE GRANULOCYTES ABSOLUTE 0.06 10/3/uL (0.0-0.11); LYMPHOCYTES 9.5 %; LYMPHOCYTES ABSOLUTE 0.96 10/3/uL (0.67-4.30); MANUAL DIFF NO %; MEAN CORPUS HGB CONC 32.8 g/dL (32.0-36.0); MEAN CORPUSCULAR HEMOGLOB 29.6 pg (26.0-34.0); MEAN CORPUSCULAR VOLUME 90.3 fL (80-100); MEAN PLATELET VOLUME 9.4 fL (9.2-13.0); MONOCYTES 8.3 %; MONOCYTES ABSOLUTE 0.84 10/3/uL (0.21-1.20); NEUTROPHILS 79.5 %; NEUTROPHILS ABSOLUTE 8.03 10/3/uL (2.02-8.40); PLATELET COUNT 165 10/3/uL (150-400); RBC DISTRIBUTION WIDTH 15.3 % (12.0-16.0); RED CELL COUNT 3.41 10/6/uL (4.0-5.6); WHITE BLOOD CELLS 10.1 10/3/uL (4.5-10.5)
[2017-01-20 05:12] LABS: INTERNATIONAL NORMAL RATI 1.3 UNITS (-)
[2017-01-20 05:14] LABS: PROTIME (NOT ORD) 16.5 SEC (12.0-14.5)
[2017-01-20 05:19] LABS: ALBUMIN 2.3 G/DL (3.5-5.0); BUN (BLOOD UREA NITROGEN) 72 MG/DL (6-23); CALCIUM, SERUM 8.6 MG/DL (8.5-10.4); CHLORIDE, SERUM 107 MMOL/L (96-112); CO2 (CARBON DIOXIDE) 25 MMOL/L (24-34); CREATININE 2.26 MG/DL (0.55-1.02); GFR AFRICAN AMERICAN 25 ML/MIN (>=60); GFR NON AFRICAN AMERICAN 22 ML/MIN (>=60); GLUCOSE, SERUM 141 MG/DL (60-99); PHOSPHORUS, SERUM 4.2 MG/DL (2.5-4.5); POTASSIUM, SERUM 4.2 MMOL/L (3.5-5.3); SODIUM, SERUM 140 MMOL/L (135-148)
[2017-01-21 05:29] LABS: INTERNATIONAL NORMAL RATI 1.7 UNITS (-)
[2017-01-21 05:32] LABS: PROTIME (NOT ORD) 20.2 SEC (12.0-14.5)
[2017-01-21 05:36] LABS: ALBUMIN 2.4 G/DL (3.5-5.0); CALCIUM, SERUM 8.9 MG/DL (8.5-10.4); CHLORIDE, SERUM 105 MMOL/L (96-112); CO2 (CARBON DIOXIDE) 24 MMOL/L (24-34); CREATININE 1.97 MG/DL (0.55-1.02); GFR AFRICAN AMERICAN 30 ML/MIN (>=60); GFR NON AFRICAN AMERICAN 26 ML/MIN (>=60); PHOSPHORUS, SERUM 4.3 MG/DL (2.5-4.5); POTASSIUM, SERUM 4.9 MMOL/L (3.5-5.3); SODIUM, SERUM 136 MMOL/L (135-148)
[2017-01-21 05:40] LABS: BUN (BLOOD UREA NITROGEN) 67 MG/DL (6-23); GLUCOSE, SERUM 191 MG/DL (60-99)
[2017-01-22 04:42] LABS: PROTIME (NOT ORD) 22.2 SEC (12.0-14.5)
[2017-01-22 04:52] LABS: ALBUMIN 2.5 G/DL (3.5-5.0); BUN (BLOOD UREA NITROGEN) 66 MG/DL (6-23); CALCIUM, SERUM 9.2 MG/DL (8.5-10.4); CHLORIDE, SERUM 101 MMOL/L (96-112); CO2 (CARBON DIOXIDE) 24 MMOL/L (24-34); CREATININE 2.05 MG/DL (0.55-1.02); GFR AFRICAN AMERICAN 28 ML/MIN (>=60); GFR NON AFRICAN AMERICAN 24 ML/MIN (>=60); GLUCOSE, SERUM 207 MG/DL (60-99); POTASSIUM, SERUM 4.3 MMOL/L (3.5-5.3); SODIUM, SERUM 134 MMOL/L (135-148)
[2017-01-23 04:17] LABS: BASOPHILS 0.6 %; BASOPHILS ABSOLUTE 0.06 10/3/uL (0.0-0.16); EOSINOPHILS 2.2 %; EOSINOPHILS ABSOLUTE 0.23 10/3/uL (0.0-0.53); HEMATOCRIT 32.9 % (36.0-48.0); HEMOGLOBIN 10.5 g/dL (12.0-16.0); IMMATURE GRANULOCYTES 1.1 %; IMMATURE GRANULOCYTES ABSOLUTE 0.12 10/3/uL (0.0-0.11); LYMPHOCYTES 12.1 %; LYMPHOCYTES ABSOLUTE 1.28 10/3/uL (0.67-4.30); MEAN CORPUS HGB CONC 31.9 g/dL (32.0-36.0); MEAN CORPUSCULAR HEMOGLOB 29.2 pg (26.0-34.0); MEAN CORPUSCULAR VOLUME 91.4 fL (80-100); MONOCYTES 6.5 %; MONOCYTES ABSOLUTE 0.69 10/3/uL (0.21-1.20); NEUTROPHILS 77.5 %; NEUTROPHILS ABSOLUTE 8.22 10/3/uL (2.02-8.40); RBC DISTRIBUTION WIDTH 15.3 % (12.0-16.0); WHITE BLOOD CELLS 10.6 10/3/uL (4.5-10.5)
[2017-01-23 04:22] LABS: INTERNATIONAL NORMAL RATI 2.3 UNITS (-); PROTIME (NOT ORD) 24.8 SEC (12.0-14.5)
[2017-01-23 04:23] LABS: MANUAL DIFF NO %; PLATELET COUNT 309 10/3/uL (150-400)
[2017-01-23 04:28] LABS: ALBUMIN 2.7 G/DL (3.5-5.0); CALCIUM, SERUM 9.1 MG/DL (8.5-10.4); CHLORIDE, SERUM 101 MMOL/L (96-112); CO2 (CARBON DIOXIDE) 27 MMOL/L (24-34); GFR AFRICAN AMERICAN 28 ML/MIN (>=60); GFR NON AFRICAN AMERICAN 24 ML/MIN (>=60); PHOSPHORUS, SERUM 3.8 MG/DL (2.5-4.5); POTASSIUM, SERUM 4.5 MMOL/L (3.5-5.3); SODIUM, SERUM 137 MMOL/L (135-148)
[2017-01-23 04:29] LABS: BUN (BLOOD UREA NITROGEN) 70 MG/DL (6-23); GLUCOSE, SERUM 156 MG/DL (60-99)
[2017-01-24 04:58] LABS: BASOPHILS 0.3 %; BASOPHILS ABSOLUTE 0.03 10/3/uL (0.0-0.16); EOSINOPHILS 2.9 %; EOSINOPHILS ABSOLUTE 0.26 10/3/uL (0.0-0.53); HEMATOCRIT 30.3 % (36.0-48.0); HEMOGLOBIN 9.7 g/dL (12.0-16.0); IMMATURE GRANULOCYTES 0.9 %; IMMATURE GRANULOCYTES ABSOLUTE 0.08 10/3/uL (0.0-0.11); LYMPHOCYTES 13.5 %; LYMPHOCYTES ABSOLUTE 1.21 10/3/uL (0.67-4.30); MANUAL DIFF NO %; MEAN CORPUSCULAR HEMOGLOB 29.4 pg (26.0-34.0); MEAN CORPUSCULAR VOLUME 91.8 fL (80-100); MEAN PLATELET VOLUME 8.6 fL (9.2-13.0); MONOCYTES 4.9 %; MONOCYTES ABSOLUTE 0.44 10/3/uL (0.21-1.20); NEUTROPHILS 77.5 %; NEUTROPHILS ABSOLUTE 6.92 10/3/uL (2.02-8.40); PLATELET COUNT 324 10/3/uL (150-400); RBC DISTRIBUTION WIDTH 15.3 % (12.0-16.0); WHITE BLOOD CELLS 8.9 10/3/uL (4.5-10.5)
[2017-01-24 05:03] LABS: INTERNATIONAL NORMAL RATI 2.6 UNITS (-); PROTIME (NOT ORD) 27.6 SEC (12.0-14.5)
[2017-01-24 05:11] LABS: ALBUMIN 2.4 G/DL (3.5-5.0); BUN (BLOOD UREA NITROGEN) 73 MG/DL (6-23); CHLORIDE, SERUM 100 MMOL/L (96-112); CO2 (CARBON DIOXIDE) 29 MMOL/L (24-34); CREATININE 2.16 MG/DL (0.55-1.02); GFR AFRICAN AMERICAN 27 ML/MIN (>=60); GFR NON AFRICAN AMERICAN 23 ML/MIN (>=60); PHOSPHORUS, SERUM 4.4 MG/DL (2.5-4.5); SODIUM, SERUM 138 MMOL/L (135-148)
[2017-01-24 05:15] LABS: GLUCOSE, SERUM 111 MG/DL (60-99)
[2017-01-24] MEDS ORDERED: NORV5 PO (12:13)
[2017-01-24] MEDS ORDERED: HALF81 PO (12:14)
[2017-01-24] MEDS ORDERED: FOLIC PO (12:15)
[2017-01-24] MEDS ORDERED: NEUR600 PO (12:17)
[2017-01-24] MEDS ORDERED: NOVOLOG SC (12:20)
[2017-01-24] MEDS ORDERED: IMDUR60 PO (12:21)
[2017-01-24] MEDS ORDERED: SYN075 PO (12:23)
[2017-01-24] MEDS ORDERED: MVI PO (12:24)
[2017-01-24] MEDS ORDERED: DUONEB INH (12:31)
[2017-01-24] MEDS ORDERED: LEVEMIR SC (12:32)
[2017-01-24] MEDS ORDERED: LIPITOR40 PO (12:58)
[2017-01-24] MEDS ORDERED: CIP5 PO ×3 (13:01→13:11)
[2017-01-24] MEDS ORDERED: C5 (13:14)
[2017-01-25 04:32] LABS: INTERNATIONAL NORMAL RATI 2.8 UNITS (-); PROTIME (NOT ORD) 29.2 SEC (12.0-14.5)
[2017-01-26 06:17] LABS: INTERNATIONAL NORMAL RATI 2.7 UNITS (-); PROTIME (NOT ORD) 28.5 SEC (12.0-14.5)
[2017-03-09] MEDS ORDERED: IMDUR120 PO (10:04)
[2017-03-09] MEDS ORDERED: NEUR300 PO (10:05)
[2017-03-09] MEDS ORDERED: X5 PO (10:07)
[2017-03-09] MEDS ORDERED: PRAVACHOL40 MG PO (10:07)
[2017-03-09] MEDS ORDERED: TOUJEO SC (10:07)
[2017-03-09] MEDS ORDERED: SPIRO25 PO (10:08)
[2017-03-09] MEDS ORDERED: CELEXA20 PO (10:08)
[2017-03-09] MEDS ORDERED: JANUVIA100 MG PO (10:08)
[2017-03-09] MEDS ORDERED: ARICEPT10 PO (10:09)
[2017-03-09] MEDS ORDERED: FISH-EPA1000 MG PO (10:09)
[2017-04-16] MEDS ORDERED: PRAVACHOL40 MG PO (09:41)
[2017-04-16] MEDS ORDERED: FISH-EPA1000 MG PO (09:42)
[2017-04-16] MEDS ORDERED: SPIRO25 PO (09:42)
[2017-04-16] MEDS ORDERED: JANUVIA100 MG PO (09:42)
[2017-04-16] MEDS ORDERED: DEMA100 PO (09:42)
[2017-04-16] MEDS ORDERED: FERROUS SULF325 M1 PO (09:43)
[2017-04-16] MEDS ORDERED: MULTIVIT/MIN PO (09:43)
[2017-04-16] MEDS ORDERED: X5 PO (09:44)
[2017-04-16] MEDS ORDERED: NORV5 PO (09:44)
[2017-04-16] MEDS ORDERED: HALF81 PO (09:45)
[2017-04-16] MEDS ORDERED: COREG6 PO (09:45)
[2017-04-16] MEDS ORDERED: CELEXA20 PO (09:45)
[2017-04-16] MEDS ORDERED: ARICEPT10 PO (09:45)
[2017-04-16] MEDS ORDERED: NEUR300 PO ×2 (09:46)
[2017-04-16] MEDS ORDERED: IMDUR120 PO (09:46)
[2017-04-16] MEDS ORDERED: TOUJEO SC (09:46)
[2017-04-16] MEDS ORDERED: SYN075 PO (09:47)
[2017-04-16] MEDS ORDERED: T PO (09:48)
[2017-04-16] MEDS ORDERED: PLAVIX PO (09:50)
== END 2017-01-26 15:37 | DRG 872 ==
LOC: ER 14:34 → 6NO 18:17
PROVIDERS: Emergency Medicine; Hospitalist; Internal Medicine; Internal Medicine Cardiovascular Disease; Internal Medicine Nephrology; Nurse Practitioner; Nurse Practitioner Family; Nurse Practitioner Gerontology
DX: A41.51 Sepsis due to Escherichia coli [E. coli] (principal); N17.9 Acute kidney failure, unspecified; N18.4 Chronic kidney disease, stage 4 (severe); E11.22 Type 2 diabetes mellitus with diabetic chronic kidney disease; I24.8 Other forms of acute ischemic heart disease; D69.6 Thrombocytopenia, unspecified; E11.42 Type 2 diabetes mellitus with diabetic polyneuropathy; N39.0 Urinary tract infection, site not specified; E87.1 Hypo-osmolality and hyponatremia; Z68.41 Body mass index [BMI] 40.0-44.9, adult; E11.65 Type 2 diabetes mellitus with hyperglycemia; E78.5 Hyperlipidemia, unspecified; I25.10 Atherosclerotic heart disease of native coronary artery without angina pectoris; G47.33 Obstructive sleep apnea (adult) (pediatric); G31.84 Mild cognitive impairment of uncertain or unknown etiology; I27.2 Other secondary pulmonary hypertension; I12.9 Hypertensive chronic kidney disease with stage 1 through stage 4 chronic kidney disease, or unspecified chronic kidney disease; E86.0 Dehydration; E66.9 Obesity, unspecified; I48.91 Unspecified atrial fibrillation; E03.9 Hypothyroidism, unspecified; Z95.1 Presence of aortocoronary bypass graft; Z79.4 Long term (current) use of insulin; Z79.82 Long term (current) use of aspirin; Z79.01 Long term (current) use of anticoagulants; Z99.81 Dependence on supplemental oxygen; Z87.891 Personal history of nicotine dependence; Z90.49 Acquired absence of other specified parts of digestive tract; Z88.5 Allergy status to narcotic agent
CPT/HCPCS: 36600; 71010; 74176; 80048; 80053; 80069; 81001; 82550; 82553; 82728; 82805; 82962; 83036; 83540; 83550; 83605; 83615; 83735; 83880; 83930; 84145; 84439; 84443; 84484; 85025; 85610; 85730; 87040; 87077; 87086; 87150; 87186; 87449; 93005; 94640; 94660; 96374; 97110-GP; 97161-GP; 97164-GP; 97166-GO; 97530-GP; 97535-GO; 99285; A9270-GY; C8929; G8978-CK-GP; G8979-CJ-GP; G8979-CK-GP; G8980-CK-GP; G8987-CK-GO; G8988-CJ-GO; J0360; J0690; J2405; J2543; Q9957